=== PATIENT | female | born 1945 | race Caucasian/White ===

== ENCOUNTER → 2016-07-20 | Outpatient (CLI) | payer MEDICARE ==
--- NOTE | 2016-07-20 11:44 | RADIOLOGY REPORT PS360 ---
BONE DENSITOMETRY(HIP:LT SPINE HISTORY: MENOPAUSAL ORDERING PHYSICIAN: Damian Valdez MD PATIENT AGE: 70 years COMPARISON: None FINDINGS: The BMD measured at the left femoral neck is 0.774 g/cm squared with a T score of -1.9. This is considered Osteopenic according to the World Health Organization criteria. Fracture risk is Moderate. Treatment is advised. IMPRESSION: Osteopenia with moderate fracture risk. Treatment is advised. Recommend follow up exam july 2018
== END ==
LOC: RAD 10:02
DX: Z78.0 Asymptomatic menopausal state (principal); Z13.820 Encounter for screening for osteoporosis